=== PATIENT | female | born 1975 | race African-American/Black ===

== ENCOUNTER 2020-11-17 13:44 | Emergency (ER) | payer OTHER, MEDICAID ==
[~2020-11-17] VITALS: Ht 162.6 cm; Wt 70.3 kg
[2020-11-17] MEDS ORDERED: TRANDATE 200 M200 M1 PO (13:56)
[2020-11-17] MEDS ORDERED: MEDROLDOSEPACK PO (15:26)
[2020-11-17 15:42] VITALS: BP 142/101
== END 2020-11-17 15:45 | disposition home or self-care (01) ==
LOC: M.ERS 13:44
DX: R60.9 Edema, unspecified (principal); I10 Essential (primary) hypertension